=== PATIENT | male | born 1965 | race Caucasian/White ===

== ENCOUNTER → 2017-01-31 | Day surgery (SDC) | payer BC ==
[~2017-01-31] MED LIST: ASPIRIN81 M1 PO; BAYER ASPIRIN325 M1 PO; CRESTOR PO; DIAZEPAM PO; EFFIENT10 MG PO; FISH OIL300 MG PO; FLEXERIL10 MG PO; HYDROCODON-ACE1 EAC5; HYDROCODON-ACE1 EACH PO; KLONOPIN0.5 MG PO; LISINOPRIL20 MG PO; METFORMIN HCL500 M1 PO; METOPROLOL TART25 MG PO; NABUMETONE PO; NITROQUICK0.4 MG SL; PRAVASTATIN SOD40 MG PO
--- NOTE | ~2017-01-31 | OR ---
Unit #: [id number] #: [id number] Patient: KOBY RAMIREZ [id number] [address] [id number] MR#: [id number] NAME: KOBY RAMIREZ. ROOM: Date of Procedure: 01/31/2017 Admission Date: 01/31/2017 Surgeon: Kyle Estes M.D. : 1965 Attending Physician: Kyle Estes M.D. Primary Care Physician: Anika Walls M.D. OPERATIVE REPORT PREOPERATIVE DIAGNOSES Neck pain, cervical facet disease, post-cervical fusion. POSTOPERATIVE DIAGNOSES Neck pain, cervical facet disease, post-cervical fusion. PROCEDURE PERFORMED Cervical facet injection x2 with intravenous sedation and fluoroscopic guidance for needle localization. INDICATIONS FOR PROCEDURE The patient is a 51-year-old male with a long history of neck pain. He had a trial of C5-C6 cervical fusion, which did not help him. He had pain worsen over the last several years, partially treated with medications. Plan is for trial of diagnostic, hopefully therapeutic cervical facet injections. DESCRIPTION OF PROCEDURE The patient was placed in the seated position. Standard monitors were applied. 4 mg of Versed were given in divided doses for anxiolysis and sedation, which were adequate. Vital signs remained stable. Sterile prep and drape then of the cervical area was performed. The skin then lateral to the C4-C5 and C5-C6 levels localized with 1% lidocaine. A 22-gauge Quincke point spinal needle was then advanced with biplanar fluoroscopic guidance to bring the needle tip to within the edge of the respective cervical facet joints. After confirming proper positioning in this manner, a dose of 80 mg of Depo-Medrol and 1 mL of 0.25% bupivacaine was deposited, 1 mL was injected at each facet, 0.5 mL within and 0.5 mL just outside the facet. The patient tolerated the procedure otherwise well and was discharged to the recovery room in stable condition. Dictated by... Kyle Estes M.D. LHP/modl TD: 02/01/2017 00:40 JOB #: [id number] Unit #: [id number] #: [id number] Patient: KOBY RAMIREZ OPERATIVE REPORT Page 1 of 1 X Kyle Estes MD X PROCEDURE OPERATIVE NOTE
== END | disposition home or self-care (01) ==
LOC: CCSC 10:06
DX: M47.22 Other spondylosis with radiculopathy, cervical region (principal); M53.82 Other specified dorsopathies, cervical region; I25.10 Atherosclerotic heart disease of native coronary artery without angina pectoris; I10 Essential (primary) hypertension; E11.9 Type 2 diabetes mellitus without complications; F41.9 Anxiety disorder, unspecified; Z88.8 Allergy status to other drugs, medicaments and biological substances; Z79.891 Long term (current) use of opiate analgesic; Z79.899 Other long term (current) drug therapy; Z79.84 Long term (current) use of oral hypoglycemic drugs; Z95.1 Presence of aortocoronary bypass graft; Z98.1 Arthrodesis status; Z98.890 Other specified postprocedural states
CPT/HCPCS: J1040; J2250